=== PATIENT | male | born 1980 | race Caucasian/White ===

== ENCOUNTER 2024-04-30 17:22 | Emergency (ER) | payer MEDICAID, OTHER ==
[~2024-04-30] VITALS: Ht 175.3 cm; Wt 74.8 kg
[2024-04-30 18:25] VITALS: BP 148/75; TEMP 98.1; O2SAT 96
== END 2024-04-30 20:51 | disposition left against medical advice (07) ==
LOC: ER 17:32
DX: R05.9 Cough, unspecified (principal); Z53.21 Procedure and treatment not carried out due to patient leaving prior to being seen by health care provider